=== PATIENT | female | born 1960 | race Caucasian/White ===

== ENCOUNTER 2016-10-27 11:20 | Emergency (ER) | payer MEDICAID ==
[~2016-10-27] VITALS: Ht 160 cm; Wt 82.1 kg
[~2016-10-27 11:20] MED LIST: CEPH-37 PO; DOCU100T15 PO; GLIM2TAB33 PO; LIS10T GT; NOR5T PO; SACC250C PO
[2016-10-27 12:15] LABS: Basophils # (auto) 0 uL; Eosinophils # (auto) 0 uL; Eosinophils % (auto) 0.5 % (0.0-7.0); Hematocrit 43.1 % (36.0-46.0); Hemoglobin 13.8 g/dL (12.2-16.2); Lymphocytes % (auto) 10.8 % (10.0-50.0); Mean Corpuscular Volume 87.5 fL (80.0-100.0); Mean Platelet Volume 10.3 fL (7.4-10.4); Monocytes # (auto) 0.8 uL; Monocytes % (auto) 8.4 % (0.0-12.0); Neutrophils # (auto) 7.5 uL; Neutrophils % (auto) 80.3 % (37.0-80.0); Platelet Count (auto) 170 10^3/uL (140-450); Red Cell Distribution Width 13.1 % (11.6-16.0); White Blood Cell 9.4 10^3/uL (4.4-10.8)
[2016-10-27 12:40] LABS: Albumin 2.8 g/dL (3.4-5.0); BUN/Creatinine Ratio 32.6; Bilirubin, Total 0.7 mg/dL (0.2-1.0); Calcium 9.2 mg/dL (8.5-10.1); Magnesium 2.1 mg/dL (1.6-2.6); Total Protein 8.1 g/dL (6.4-8.2)
[2016-10-27] MEDS ORDERED: SODIUM CHLORIDE 0.9% 1,000 ML IV ONE (15:35)
[2016-10-27] MEDS ORDERED: METOCLOPRAMIDE HCL 5MG/ml INJ 2ml VIAL IV ONE (15:45)
[2016-10-27] MEDS ORDERED: DEXAMETHASONE SOD PHOS 4 MG/1ML SDV INJ IV ONE (15:45)
[2016-10-27] MEDS ORDERED: KETOROLAC TROMETH 30 MG/ML 1ML VIAL IV ONE (15:45)
[2016-10-27 16:33] VITALS: BP 111/58
[2016-10-27 17:44] LABS: Urine Color Yellow (Yellow); Urine Granular Cast FEW /lpf (0); Urine Hyaline Cast FEW /lpf (0 - 2); Urine Mucus FEW (None Seen); Urine Nitrite Negative (Negative); Urine RBC 3 /hpf (0 - 4); Urine Squamous Epithelial Cell FEW /hpf (<5)
[2016-10-27 17:59] LABS: Urine Blood 2+ /uL (Negative); Urine Glucose 4+ mg/dL (Normal); Urine Ketone 4+ (Negative)
[2016-10-27 18:24] LABS: Urine Bilirubin 1+ (Negative)
== END 2016-10-27 18:44 | disposition home or self-care (01) ==
LOC: ER 11:20
DX: M47.896 Other spondylosis, lumbar region (principal); E11.65 Type 2 diabetes mellitus with hyperglycemia; E44.0 Moderate protein-calorie malnutrition; Z68.32 Body mass index [BMI] 32.0-32.9, adult; N39.0 Urinary tract infection, site not specified; J45.909 Unspecified asthma, uncomplicated; E11.9 Type 2 diabetes mellitus without complications; I10 Essential (primary) hypertension
CPT/HCPCS: 36415; 71020; 72131; 80053; 81001; 83735; 84484; 85025; 93005; 96361; 96374; 96375; 99285; J1100; J1885; J2765; J7030

== ENCOUNTER 2017-02-11 20:50 | Inpatient (IN) | payer MEDICAID ==
[~2017-02-11] VITALS: Ht 162.6 cm; Wt 83.0 kg
[~2017-02-11 20:50] MED LIST changes: +HYDR-4663 PO; -NOR5T PO
[2017-02-11] MEDS ORDERED: SODIUM CHLORIDE 0.9% 1,000 ML IV ONE (23:30)
[2017-02-11] MEDS ORDERED: KETOROLAC TROMETH 30 MG/ML 1ML VIAL IV ONE (23:30)
[2017-02-12 00:01] LABS: Basophils # (auto) 0 uL; Basophils % (auto) 0.1 % (0.0-2.0); Eosinophils # (auto) 0 uL; Eosinophils % (auto) 0.1 % (0.0-7.0); Hematocrit 46.5 % (36.0-46.0); Hemoglobin 15.5 g/dL (12.2-16.2); Lymphocytes # (auto) 0.4 uL; Lymphocytes % (auto) 4.9 % (10.0-50.0); Mean Corpuscular Hemoglobin 28.9 pg (28.0-32.0); Mean Corpuscular Hgb Conc. 33.4 g/dL (32.0-36.0); Mean Corpuscular Volume 86.6 fL (80.0-100.0); Mean Platelet Volume 10.6 fL (7.4-10.4); Monocytes # (auto) 0.3 uL; Monocytes % (auto) 3.3 % (0.0-12.0); Neutrophils # (auto) 7.4 uL; Neutrophils % (auto) 91.6 % (37.0-80.0); Platelet Count (auto) 169 10^3/uL (140-450); Red Cell Distribution Width 13.4 % (11.6-16.0); White Blood Cell 8.1 10^3/uL (4.4-10.8)
[2017-02-12 00:20] LABS: Albumin 3.3 g/dL (3.4-5.0); BUN/Creatinine Ratio 19.8; Calcium 8.8 mg/dL (8.5-10.1); Potassium 4.7 mmol/L (3.5-5.1)
[2017-02-12 00:21] LABS: Bilirubin, Total 1.3 mg/dL (0.2-1.0)
[2017-02-12 00:59] LABS: Urine Bilirubin Negative (Negative); Urine Blood 1+ /uL (Negative); Urine Color Yellow (Yellow); Urine Glucose 4+ mg/dL (Normal); Urine Ketone 2+ (Negative); Urine Mucus FEW (None Seen); Urine Nitrite Negative (Negative); Urine RBC 1 /hpf (0 - 4); Urine Squamous Epithelial Cell FEW /hpf (<5); Urine Urobilinogen Normal (Negative); Urine pH 5.5 (5.0-8.0)
[2017-02-12] MEDS ORDERED: SODIUM CHLORIDE 0.9% 1,000 ML IV ONE (01:00)
[2017-02-12] MEDS ORDERED: InsuLIN REG 1unit/0.01ml Soln (100units/ml) IV ONE (01:00)
[2017-02-12] MEDS ORDERED: ONDANSETRON HCL 4 MG/2 ML VIAL IV ONE ×3 (01:45→18:45)
[2017-02-12 01:57] LABS: Allen Test Yes; Base Excess -6.3 mmol/L (-2.0-2.0); Blood 02Sat 94.4 % (96-100); Blood COHb 0.9 % (0.5-1.5); Blood MetHb 0.3 % (0.0-1.5); HCO3 17.2 mmol/L (22-26.0); HHb 5.5 % (0.0-5.0); MODE ROOM AIR; O2Hb 93.3 % (94.0-97.0); Sample Type Arterial; pH 7.391 (7.350-7.450)
[2017-02-12 02:36] LABS: REFLEX LACTIC ACID YES OR NO YES
[2017-02-12] MEDS ORDERED: metroNIDAZOLE 500MG/100ML 100 ML IV ONE ×2 (03:00→17:27)
[2017-02-12] MEDS ORDERED: PIPERACILLIN-TAZOB 3.375GM 100 ML IV ONE (03:00)
[2017-02-12] MEDS ORDERED: HYDROmorphone HCL 2 MG/ML VL IV ONE (04:30)
[2017-02-12] MEDS ORDERED: ACETAMINOPHEN 325 MG TAB PO PRN (06:15)
[2017-02-12] MEDS ORDERED: HYDROcodone-ACET 5/325MG TAB PO PRN (06:15)
[2017-02-12] MEDS ORDERED: SODIUM CHLORIDE 0.9% 500 ML IV ONE (06:15)
[2017-02-12] MEDS ORDERED: MORPHINE SULF INJ 2 MG/ML SYRINGE 1ML IV PRN (06:15)
[2017-02-12] MEDS ORDERED: DEXTROSE (50%) 50ML SYRG IV PRN (06:15)
[2017-02-12] MEDS ORDERED: ONDANSETRON HCL 4 MG/2 ML VIAL IV PRN (06:15)
[2017-02-12] MEDS ORDERED: NITROGLYCERIN 0.4 MG SL TAB SL PRN (06:15)
[2017-02-12] MEDS: InsuLIN REG 1unit/0.01ml Soln (100units/ml) SC SCH ×5 (08:00→23:48)
[2017-02-12 08:56] VITALS: BP 112/47
[2017-02-12 09:14] LABS: INR 1.13 (0.9-1.15); Prothrombin Time 12.3 sec (9.37-12.3)
[2017-02-12] MEDS: PANTOPRAZOLE SODIUM 40 MG/10 ML VIAL IV SCH (09:24)
[2017-02-12] MEDS: ACCU-CHEK COMFORT CURVE STRIP VI SCH ×5 (09:25→23:50)
[2017-02-12] MEDS: PIPERACILLIN-TAZOB 3.375GM 100 ML IV SCH ×4 (09:54→23:36)
[2017-02-12] MEDS: SODIUM CHLORIDE 0.9% 1,000 ML IV SCH ×2 (09:55→16:06)
[2017-02-12] MEDS ORDERED: metroNIDAZOLE 500MG/100ML 100 ML IV SCH (11:00)
[2017-02-12 13:32] VITALS: BP 145/66
[2017-02-12] MEDS ORDERED: fentaNYL CITRATE 5 ML ONE (17:34)
[2017-02-12] MEDS ORDERED: MIDAZOLAM HCL 1MG/1ML-2 ML VIAL ONE (17:34)
[2017-02-12] MEDS ORDERED: ROCURONIUM 10MG/ML 10ML VIAL IV ONE (17:35)
[2017-02-12] MEDS ORDERED: NEOSTIGMINE 1 MG/ML INJ (10mg/10ML VIAL) IV ONE (17:35)
[2017-02-12] MEDS ORDERED: PROPOFOL 10 MG/ML 20 ML IV ONE (17:35)
[2017-02-12] MEDS ORDERED: GLYCOPYRROLATE 0.2 MG/ML 1ML VIAL IV ONE (17:35)
[2017-02-12] MEDS ORDERED: SUCCINYLCHOLINE CHLORIDE 20 MG/ML 10ML VIAL IV ONE (17:35)
[2017-02-12] MEDS ORDERED: hydrALAZINE HCL 20 MG/ML VL IV PRN (18:45)
[2017-02-12] MEDS ORDERED: ePHEDrine SULFATE 50 MG/ML AMP IV PRN (18:45)
[2017-02-12] MEDS: HYDROmorphone HCL 2 MG/ML VL IV PRN ×2 (19:10→19:20)
[2017-02-12] MEDS ORDERED: LISINOPRIL 10 MG TAB GT ONE (19:30)
[2017-02-12 20:00] VITALS: BP 122/67
[2017-02-12 22:18] VITALS: BP 122/67
[2017-02-13] MEDS: MORPHINE SULF INJ 2 MG/ML SYRINGE 1ML IV PRN ×4 (01:24→14:12)
[2017-02-13] MEDS: ACCU-CHEK COMFORT CURVE STRIP VI SCH ×4 (04:00→16:24)
[2017-02-13 05:03] VITALS: BP 123/74
[2017-02-13] MEDS: InsuLIN REG 1unit/0.01ml Soln (100units/ml) SC SCH ×4 (05:06→16:00)
[2017-02-13] MEDS: SODIUM CHLORIDE 0.9% 1,000 ML IV SCH ×2 (05:07→12:06)
[2017-02-13] MEDS: PIPERACILLIN-TAZOB 3.375GM 100 ML IV SCH ×3 (05:54→18:00)
[2017-02-13 06:32] LABS: Potassium 3.6 mmol/L (3.5-5.1)
[2017-02-13 06:39] LABS: Albumin 2.2 g/dL (3.4-5.0); BUN/Creatinine Ratio 24.3; Calcium 7.9 mg/dL (8.5-10.1); Magnesium 1.8 mg/dL (1.6-2.6); Total Protein 6.1 g/dL (6.4-8.2)
[2017-02-13 06:43] LABS: Bilirubin, Total 1.1 mg/dL (0.2-1.0)
[2017-02-13 06:48] LABS: Basophils # (auto) 0 uL; Basophils % (auto) 0.2 % (0.0-2.0); Eosinophils # (auto) 0 uL; Eosinophils % (auto) 0.5 % (0.0-7.0); Hematocrit 35.7 % (36.0-46.0); Hemoglobin 11.9 g/dL (12.2-16.2); Lymphocytes % (auto) 13.7 % (10.0-50.0); Mean Corpuscular Hemoglobin 29.5 pg (28.0-32.0); Mean Corpuscular Hgb Conc. 33.5 g/dL (32.0-36.0); Mean Corpuscular Volume 87.9 fL (80.0-100.0); Mean Platelet Volume 9.9 fL (7.4-10.4); Monocytes # (auto) 0.4 uL; Monocytes % (auto) 5.4 % (0.0-12.0); Neutrophils # (auto) 5.8 uL; Neutrophils % (auto) 80.2 % (37.0-80.0); Platelet Count (auto) 150 10^3/uL (140-450); Red Cell Distribution Width 13.3 % (11.6-16.0); White Blood Cell 7.2 10^3/uL (4.4-10.8)
[2017-02-13 08:00] VITALS: BP 121/64
[2017-02-13 09:06] VITALS: BP 121/64
[2017-02-13] MEDS: PANTOPRAZOLE SODIUM 40 MG/10 ML VIAL IV SCH (09:55)
[2017-02-13] MEDS ORDERED: LISINOPRIL 10 MG TAB GT SCH (10:00)
[2017-02-13 12:49] VITALS: BP 103/68
[2017-02-13] MEDS ORDERED: LEVO500T21 PO (13:52)
[2017-02-13] MEDS ORDERED: METR500T PO (13:52)
[2017-02-13 14:29] VITALS: BP 103/68
[2017-02-13 16:45] VITALS: BP 137/74
== END 2017-02-13 18:00 | disposition home or self-care (01) | DRG 710 ==
LOC: ER 21:20 → TELE 21:21 → TELE-WESTW 02-12 07:54
PROVIDERS: ADMIT Nurse Practitioner; ATTEND Internal Medicine
PROC: 0DTJ4ZZ Resection of Appendix, Percutaneous Endoscopic Approach (ICD-10-PCS; principal; 2017-02-12 17:35)
DX: A41.9 Sepsis, unspecified organism (principal); E11.65 Type 2 diabetes mellitus with hyperglycemia; I10 Essential (primary) hypertension; K35.80 Unspecified acute appendicitis; E78.5 Hyperlipidemia, unspecified; F41.9 Anxiety disorder, unspecified; J45.909 Unspecified asthma, uncomplicated; N83.201 Unspecified ovarian cyst, right side; F32.9 Major depressive disorder, single episode, unspecified; E66.9 Obesity, unspecified; K66.0 Peritoneal adhesions (postprocedural) (postinfection); K59.00 Constipation, unspecified; X58.XXXA Exposure to other specified factors, initial encounter; S39.012A Strain of muscle, fascia and tendon of lower back, initial encounter; Z80.1 Family history of malignant neoplasm of trachea, bronchus and lung; Z82.5 Family history of asthma and other chronic lower respiratory diseases; Z83.3 Family history of diabetes mellitus; Z90.89 Acquired absence of other organs; Z80.9 Family history of malignant neoplasm, unspecified; Z90.49 Acquired absence of other specified parts of digestive tract; Y93.89 Activity, other specified; Y92.89 Other specified places as the place of occurrence of the external cause; Y99.8 Other external cause status; Z68.31 Body mass index [BMI] 31.0-31.9, adult
CPT/HCPCS: 36415; 36600; 71010; 74176; 80053; 81001; 82010; 82805; 82962; 83036; 83605; 83735; 85025; 85610; 85730; 86850; 86900; 86901; 87040; 96365; 96368; 96375; 96376; C9113; J0330; J1815; J1885; J2250; J2405; J2543; J2704; J3490